=== PATIENT | male | born 1970 | race Caucasian/White ===

== ENCOUNTER 2022-07-07 17:30 | Emergency (ER) | payer BC, SELFPAY ==
[2022-07-07] VITALS (7 sets, daily range): BP systolic 149–162; BP diastolic 98–117; PULSE 96–108; RESP 16–18; TEMP 36.7–36.8; O2SAT 97–100; BMI 26.9
[2022-07-07 17:57] LABS: Glucose Point of Care 105 mg/dL (70-110)
--- NOTE | 2022-07-07 19:14 | XRR_ITS ---
PROCEDURE INFORMATION: Exam: XR Chest Exam date and time: 07/07/2022 7:38 PM Age: 52 years old Clinical indication: Other: Weakness TECHNIQUE: Imaging protocol: Radiologic exam of the chest. Views: 1 view. COMPARISON: No relevant prior studies available. FINDINGS: Lungs: Unremarkable. No consolidation. Pleural spaces: Unremarkable. No pleural effusion. No pneumothorax. Heart/Mediastinum: Unremarkable. No cardiomegaly. Bones/joints: Unremarkable. XR/XR chest 1V portable [id number] IMPRESSION: No acute findings.
--- NOTE | 2022-07-07 19:25 | ECG_ITS ---
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 Measurements Intervals [place] Rate: 90 P: 0 IN: 100 QRS: 56 QRSD: 114 T: 35 QT: 377 QTc: 464 Interpretive Statements SINUS RHYTHM WITH SHORT IN INTERVAL WITH OCCASIONAL SUPRAVENTRICULAR PREMATURE COMPLEXES MODERATE INTRAVENTRICULAR CONDUCTION DELAY [110+ ms QRS DURATION] No previous ECG available for comparison Electronically Signed On 07-08-2022 6:52:08 CDT by Soy Quispe M.D. [id number]
--- NOTE | 2022-07-07 19:34 | W.ED.WEAKNES ---
HPI - Weakness General: Chief complaint: Weakness Stated complaint: dizzy, nausea, tingling legs Time Seen by Provider: 07/07/22 19:13 Source: patient Mode of arrival: ambulatory Limitations: no limitations History of Present Illness: 52-year-old male states that over the today he has had feelings of lightheadedness like he is going to pass out. States this happened at 5 PM he states had multiple episodes where his feels were lightheaded and like he is about to pass out he has not passed out though. States he had some nausea with these events along with some tingling. Had some slight back pain he had some mild shortness of breath he states he just had a flight from [place]. He denies any chest pain denies any fever denies any vomiting. Associated symptoms: Reports nausea; Denies chest pain, chills, dysuria, fever(s), headache(s) or vomiting Review of Systems Const: Reports: fatigue; Denies: fever(s), chills, body aches or change in appetite Eyes: Denies: blurry vision or eye discomfort ENMT: Denies: throat pain Card: Reports: pre-syncope; Denies: chest pain Resp: Reports: dyspnea GI: Reports: nausea; Denies: abdominal pain, vomiting or diarrhea : Denies: dysuria Musc: Reports: back pain; Denies: neck pain Skin/Breast: Denies: rash Neuro: Denies: headache(s) Physical Exam Const: COMMON NORMALS: no acute distress, patient oriented x3 and healthy appearing HENMT: COMMON NORMALS: normocephalic and atraumatic HEAD & SCALP: normocephalic and atraumatic Eye: COMMON NORMALS: conjunctivae normal CONJUNCTIVA: Yes conjunctivae normal Neck/C-Spine: COMMON NORMALS: supple Chest: COMMONS NORMALS: normal inspection of the chest and normal palpation of entire chest wall Resp: COMMON NORMALS: normal respiratory effort, No retractions, No use of accessory muscles and clear to auscultation bilaterally AUSCULTATION: clear to auscultation bilaterally Cardio: COMMON NORMALS: regular rate, regular rhythm and No murmurs present (Cardio) RATE: regular rate RHYTHM: regular rhythm GI: COMMON NORMALS: Normal to inspection, nondistended, normoactive bowel sounds present, Soft to palpation, non-tender and no masses PALPATION: Yes Soft to palpation Back/Pelvis: OTHER: point tender over right rhomboid Extremity: COMMON NORMALS: normal to inspection and full ROM Neuro: COMMON NORMALS: patient oriented x3, moves all extremities and no focal motor deficits Psych: COMMON NORMALS: mental status grossly normal, Normal thought process present and cooperative THOUGHT PROCESS: Normal thought process present Skin: COMMON NORMALS: no rashes or lesions noted and no wounds GENERAL SKIN EXAM: no rashes or lesions noted Course Vital Signs: Vital signs: Vital Signs Temperature 98.2 F 07/07/22 18:19 Pulse Rate 96 07/07/22 19:42 Respiratory Rate 18 07/07/22 19:42 Blood Pressure 162/109 07/07/22 19:42 Pulse Oximetry 100 07/07/22 19:42 Oxygen Delivery Me thod Room Air 07/07/22 17:39 MDM - Weakness Medical Decision Making Patient presents here with near syncopal is also quite anxious he had a panic attack here as well did give him 2 mg Ativan he feels much improved now work-up here is normal including a normal D-dimer and a head CT will prescribe him hydroxyzine he is to follow-up with PCP and return if worsening. Medical Records I reviewed the patient's medical records. Lab Data I reviewed the patient's lab results. 07/07/22 19:36 07/07/22 19:36 Radiology Impressions Chest X-Ray 07/07/22 19:14 IMPRESSION: No acute findings. Head CT 07/07/22 19:57 IMPRESSION: No acute intracranial abnormality. Laboratory Results WBC 8.1 10^3/uL (4.0-10.0) 07/07/22 19:36 RBC 4.33 10^6/uL (4.1-5.3) 07/07/22 19:36 Hgb 14.0 g/dL (11.7-16.6) 07/07/22 19:36 Hct 41.2 % (42.0-52.0) L 07/07/22 19:36 MCV 95.2 fl (80-94) H 07/07/22 19:36 MCH 32.3 pg (28.0-34.0) 07/07/22 19:36 MCHC 34.0 g/dL (30.0-36.0) 07/07/22 19:36 RDW 12.5 % (12.1-15.1) 07/07/22 19:36 Plt Count 283 10^3/cmm (130-400) 07/07/22 19:36 MPV 8.6 fL (7.4-10.4) 07/07/22 19:36 Neut % (Auto) 68.2 % 07/07/22 19:36 Lymph % (Auto) 19.8 % 07/07/22 19:36 [place] % (Auto) 9.4 % 07/07/22 19:36 Eos % (Auto) 0.9 % 07/07/22 19:36 Baso % (Auto) 0.6 % 07/07/22 19:36 Neut # (Auto) 5.53 10^3/uL (1.8-7.7) 07/07/22 19:36 Lymph # (Auto) 1.6 10^3/uL (0.8-4.8) 07/07/22 19:36 [place] # (Auto) 0.8 10^3/uL (0.2-0.9) 07/07/22 19:36 Eos # (Auto) 0.1 10^3/uL (0.0-0.8) 07/07/22 19:36 Baso # (Auto) 0.1 10^3/uL (0.0-0.1) 07/07/22 19:36 Nucleated RBC % (auto) 0 % 07/07/22 19:36 Nucleated RBCs # 0.0 /100WBC 07/07/22 19:36 D-Dimer 0.36 ug/mIFEU (0-0.59) 07/07/22 19:36 Sodium 139 mmol/L (136-145) 07/07/22 19:36 Potassium 3.5 mmol/L (3.5-5.1) 07/07/22 19:36 Chloride 100 mmol/L (98-107) 07/07/22 19:36 Carbon Dioxide 24 mmol/L (22-29) 07/07/22 19:36 Anion Gap 18.5 (5-19) 07/07/22 19:36 BUN 18 mg/dL (6-20) 07/07/22 19:36 Creatinine 0.9 mg/dL (0.7-1.2) 07/07/22 19:36 GFR Calculation 89.3 mL/min (90-130) L 07/07/22 19:36 Glucose 93 mg/dL (65-115) 07/07/22 19:36 POC Glucose 105 mg/dL (70-110) 07/07/22 17:46 Calculated Osmolality 290 mOsm/kg (285-295) 07/07/22 19:36 Calcium 9.2 mg/dL (8.5-10.5) 07/07/22 19:36 Total Bilirubin 0.6 mg/dL (0.15-1.2) 07/07/22 19:36 AST 30 U/L (0-40) 07/07/22 19:36 ALT 39 U/L (0-41) 07/07/22 19:36 Alkaline Phosphatase 60 U/L (40-130) 07/07/22 19:36 Troponin T Baseline 11 ng/L (0-15) 07/07/22 19:36 Total Protein 7.2 g/dL (6.6-8.7) 07/07/22 19:36 Albumin 4.7 g/dL (3.5-5.2) 07/07/22 19:36 Globulin 2.5 g/dL (1.3-4.6) 07/07/22 19:36 TSH 1.54 uIU/mL (0.27-4.20) 07/07/22 19:36 EKG Data EKG 1: I personally reviewed and interpreted this EKG as follows: EKG interpretation date: 07/07/22 EKG interpretation time: 19:25 Interpretation: nsr hr [address] or t wave abnormalities qrs 114 qtc 425 Discharge Plan Discharge Patient Disposition: Home Clinical Impression: Near syncope, Anxiety Condition: Stable Prescriptions: New hydroxyzine HCl 50 mg tablet 50 mg PO Q8H PRN (Reason: anxiety) Qty: 20 0RF Discharge Orders: Discharge ED (Routine); Ordered 07/07/22 Ordered By: Anahy Yung Discharge Diet: Advance as tolerated Discharge Activity: Resume usual activity Patient Instructions: Near Syncope (ED), Anxiety (ED) Coding Level of Care Code 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
[2022-07-07] MEDS: sodium chloride 0.9% 1,000 ML 999 ML IV ×2 (19:39→21:03)
--- NOTE | 2022-07-07 19:50 | PC.NURSE ---
Called to pt's room, pt shaking, diaphoretic, c/o pain in right posterior neck, and c/o numbness in bilateral legs. Pt states I think I'm having a panic attack . Pt's in room and requesting head CT. Dr Yung informed of pt's symptoms, new EKG obtained per verbal order from Dr Yung. Dr Yung to bedside
--- NOTE | 2022-07-07 19:57 | CTR_ITS ---
PROCEDURE INFORMATION: Exam: CT Head Without Contrast Exam date and time: 07/07/2022 8:19 PM Age: 52 years old Clinical indication: Syncope and collapse; Additional info: Near syncope TECHNIQUE: Imaging protocol: Computed tomography of the head without contrast. Radiation optimization: All CT scans at this facility use at least one of these dose optimization techniques: automated exposure control; mA and/or kV adjustment per patient size (includes targeted exams where dose is matched to clinical indication); or iterative reconstruction. REPORTING DATA: Count of CT and Cardiac NM exams in prior 12 months: This patient has received 0 known CTs and 0 known cardiac nuclear medicine studies in the 12 months prior to the current study. COMPARISON: No relevant prior studies available. RADIATION DOSE METRICS: Total DLP (mGy-cm): 1232.54 FINDINGS: Brain: Normal. No hemorrhage. Unremarkable white matter. No mass effect. Cerebral ventricles: No ventriculomegaly. Paranasal sinuses: Visualized sinuses are unremarkable. No fluid levels. Mastoid air cells: Visualized mastoid air cells are well aerated. Bones/joints: Unremarkable. No acute fracture. Soft tissues: Unremarkable. CT/CT head wo con* [id number] IMPRESSION: No acute intracranial abnormality.
[2022-07-07] MEDS: LORazepam 2 mg/mL INJ 1 mL IVP (20:00)
[2022-07-07 20:12] LABS: Basophils # 0.1 10^3/uL (0.0-0.1); Basophils % 0.6 %; Eosinophils # 0.1 10^3/uL (0.0-0.8); Eosinophils % 0.9 %; Hematocrit 41.2 % (42.0-52.0); Lymphocytes # 1.6 10^3/uL (0.8-4.8); Lymphocytes % 19.8 %; Mean Corpuscular Hemoglobin 32.3 pg (28.0-34.0); Mean Corpuscular Volume 95.2 fl (80-94); Mean Platelet Volume 8.6 fL (7.4-10.4); Monocytes # 0.8 10^3/uL (0.2-0.9); Monocytes % 9.4 %; Neutrophils # 5.53 10^3/uL (1.8-7.7); Neutrophils % 68.2 %; Nucleated Red Blood Cells % 0 %; Platelet Count 283 10^3/cmm (130-400); Red Blood Count 4.33 10^6/uL (4.1-5.3); Red Cell Distribution Width 12.5 % (12.1-15.1); White Blood Count 8.1 10^3/uL (4.0-10.0)
[2022-07-07 20:26] LABS: D Dimer 0.36 ug/mIFEU (0-0.59)
[2022-07-07 20:30] LABS: Troponin(5th) Baseline 11 ng/L (0-15)
--- NOTE | 2022-07-07 20:30 | PC.NURSE ---
Pt resting more calmly at this time, no shaking, not diaphoretic, states he is feeling better.
[2022-07-07 20:32] LABS: Alanine Aminotransferase 39 U/L (0-41); Albumin Level 4.7 g/dL (3.5-5.2); Alkaline Phosphatase 60 U/L (40-130); Aspartate Amino Transferase 30 U/L (0-40); Blood Urea Nitrogen 18 mg/dL (6-20); Calcium 9.2 mg/dL (8.5-10.5); Carbon Dioxide 24 mmol/L (22-29); Chloride 100 mmol/L (98-107); Globulin 2.5 g/dL (1.3-4.6); Glomerular Filtration Rate 89.3 mL/min (90-130); Glucose 93 mg/dL (65-115); Osmolality Calculated 290 mOsm/kg (285-295); Sodium 139 mmol/L (136-145); Thyroid Stimulating Hormone 1.54 uIU/mL (0.27-4.20); Total Bilirubin 0.6 mg/dL (0.15-1.2); Total Protein 7.2 g/dL (6.6-8.7)
[2022-07-07 20:40] LABS: Anion Gap 18.5 (5-19); Potassium 3.5 mmol/L (3.5-5.1)
--- NOTE | 2022-07-07 21:22 | ECG_ITS ---
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 Measurements Intervals [place] Rate: 99 P: 31 [place]: 141 QRS: 56 QRSD: 109 T: 41 QT: 365 QTc: 470 Interpretive Statements SINUS RHYTHM Compared to ECG 07/07/2022 19:25:07 Short [place] interval no longer present Intraventricular conduction delay no longer present Electronically Signed On 07-08-2022 6:56:57 CDT by Soy Quispe M.D. [id number]
[2022-07-07 21:43] LABS: Troponin 5 2HR 10.72 ng/L (0-15)
[2022-07-07 21:47] LABS: Troponin 5 2HR Delta -0.28 ABS# (0-10)
--- NOTE | 2022-07-14 10:04 | DCPLANNER ---
manager quality called patient due to no primary care physician - patient states that he sees Riya Sorto.
== END 2022-07-07 21:58 | disposition home or self-care (01) ==
PROVIDERS: Emergency Provider Emergency Medicine
DX: R55 Syncope and collapse (principal); F41.9 Anxiety disorder, unspecified
CPT/HCPCS: 36415; 36416; 70450; 71045; 80053; 82962; 84443; 84484; 85025; 85378; 93005; 96361; 96374; 99285; J2060; J7030

== ENCOUNTER 2022-09-15 22:26 | Emergency (ER) | payer BC, SELFPAY ==
[2022-09-15 22:32] VITALS: PULSE 91; RESP 20; TEMP 36.7; O2SAT 97; BMI 26.9
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
[2022-09-15] MEDS: HYDROcodone-acetaminophen 10-325 mg Tablet 1 TAB PO (22:55)
[2022-09-15] MEDS: fluorescein 1 mg Strip EYE-RIGHT (22:57)
[2022-09-15] MEDS: neomycin-poly-dex Op 5 mL Btl 2 DROP EYE-RIGHT (22:57)
[2022-09-15] MEDS: tetracaine 0.5% Op Soln 4 mL Btl 1 DROP EYE-RIGHT (22:57)
[2022-09-15] MEDS: eye irrigation 30 mL Btl EYE-RIGHT (22:57)
== END 2022-09-15 23:18 | disposition home or self-care (01) ==
PROVIDERS: Emergency Provider Nurse Practitioner Family
DX: S05.01XA Injury of conjunctiva and corneal abrasion without foreign body, right eye, initial encounter (principal); W20.8XXA Other cause of strike by thrown, projected or falling object, initial encounter
CPT/HCPCS: 99283